=== PATIENT | female | born 2000 | race Caucasian/White ===

== ENCOUNTER 2019-03-20 06:07 | Day surgery (SDC) | payer SELFPAY ==
[2019-03-13 15:14] VITALS: BMI 21.6
[2019-03-20] MEDS ORDERED: PROPOFOL 20 ML ONE ×6 (07:13→10:23)
[2019-03-20] MEDS ORDERED: fentaNYL CITRATE 250 MCG/5 ML VIAL ONE (07:13)
[2019-03-20] MEDS ORDERED: ONDANSETRON 4 MG/2 ML VIAL ONE ×2 (07:14→10:02)
[2019-03-20] MEDS ORDERED: SUCCINYLCHOLINE CHLORIDE 200 MG/10 ML SYRINGE ONE (07:14)
[2019-03-20] MEDS ORDERED: LIDOCAINE HCL/PF 2% SDV 5ML VIAL ONE (07:14)
[2019-03-20] MEDS ORDERED: DEXAMETHASONE SOD PHOSPHATE 4 MG/1 ML VIAL ONE (07:14)
[2019-03-20] MEDS ORDERED: MIDAZOLAM HCL 2 MG/2 ML SINGLE DOSE VIAL ONE (07:14)
[2019-03-20] MEDS ORDERED: BUPIVACAINE HCL/PF 2.5 MG/ML - 30 ML VIAL IJ ONE (07:31)
[2019-03-20] MEDS ORDERED: LIDOCAINE HCL 2% (20ML MULTI-DOSE VIAL) NR ONE (07:31)
[2019-03-20] MEDS ORDERED: BACITRACIN 15 GM TUBE TOPICAL OINTMENT ONE (07:31)
[2019-03-20] MEDS ORDERED: SCOPOLAMINE HYDROBROMIDE 1 PATCH PATCH.TD72 ONE (07:34)
[2019-03-20] MEDS ORDERED: CLINDAMYCIN PHOSPHATE 600 MG/4 ML VIAL ONE (08:55)
[2019-03-20] MEDS ORDERED: ONDANSETRON 4 MG/2 ML VIAL IVPUSH PRN (09:09)
[2019-03-20] MEDS ORDERED: oxyCODONE HCL 5 MG TABLET PO PRN ×2 (09:09)
[2019-03-20] MEDS ORDERED: LACTATED RINGERS SOLUTION 1,000 ML IV SCH (09:15)
[2019-03-20] MEDS ORDERED: KETOROLAC TROMETHAMINE 30 MG/1 ML VIAL ONE (10:25)
[2019-03-20] MEDS ORDERED: oxyCODONE HCL 5 MG TABLET ONE (12:15)
[2019-03-20 14:15] VITALS: TEMP 98.5
[2019-03-20 14:26] VITALS: BP 122/72; PULSE 65
== END 2019-03-20 13:00 | disposition home or self-care (01) ==
LOC: FASU 06:07
PROVIDERS: ATTEND Surgery
PROC: 0HSWXZZ Reposition Right Nipple, External Approach (ICD-10-PCS; 2019-03-20)
PROC: 0HSXXZZ Reposition Left Nipple, External Approach (ICD-10-PCS; principal; 2019-03-20 09:14)
DX: Z41.1 Encounter for cosmetic surgery (principal); N64.59 Other signs and symptoms in breast
CPT/HCPCS: 84703; 94760